=== PATIENT | female | born 1990 | race Hispanic/Latino ===

== ENCOUNTER 2018-05-05 07:36 | Outpatient (CLI) | payer OTHER ==
--- NOTE | 2018-05-05 10:17 | ULT ---
COMPLETE OB ULTRASOUND: HISTORY: Size and dates. COMPARISON: None. TECHNIQUE: Real-time, snyder-scale, color Doppler and spectral analysis of the gravid uterus is performed via tra nsabdominal approach. FINDINGS: Single viable intrauterine of average ultrasound age of 21 weeks 6 days. Estimated date of delivery 09/09/2018. Estimated weight 15 oz. BIOMETRY: BIPARIETAL DIAMETER: 5.34 cm (22 weeks 2 days). HEAD CIRCUMFERENCE: 19.6 cm (21 weeks 6 days). ABDOMINAL CIRCUMFERENCE: 17.31 cm (22 weeks 2 days), FEMUR LENGTH: 3.39 cm (20 weeks 5 days). Heart rate documented at 142 beats per minute. Amniotic fluid is adequate. No placenta previa. The placenta location is anterior and the presentat ion is cephalic. ANATOMY: Head, cerebellum, cisterna magna, lateral ventricles, four-chamber heart, stomach, kidneys, cord insertion, bladder, and cervical, thoracic, lumbar, and sacral spines, as well as lips/nose, up per extremities, lower extremities, and three-vessel cord are all normal. The cervix measures approximately 4 cm in length and is closed. IMPRESSION: Normal single viable intrauterine . POS: [facility]
== END 2018-05-05 07:37 | disposition home or self-care (01) ==
LOC: BICULT 07:36
PROVIDERS: ATTEND Family Medicine
DX: O09.892 Supervision of other high risk pregnancies, second trimester (principal); Z3A.21 21 weeks gestation of pregnancy
CPT/HCPCS: 76805

== ENCOUNTER 2018-07-26 18:20 | Day surgery (SDC) | payer OTHER ==
[2018-07-26 19:08] VITALS: BP 109/56; TEMP 98.7; BMI 32.5
[2018-07-26 20:14] LABS: Bilirubin Negative (Negative); Blood, Urine Negative (Negative); Clarity CLEAR (Clear); Glucose, Urine (Dipstick) 250 mg/dL (Negative); Leukocyte Negative (Negative); Nitrite Negative (Negative); Protein, Urine (Dipstick) Trace mg/dL (Neg-Trace); Specific Gravity, Urine 1.024 (1.002-1.036); pH, Urine 6.5 (5.0-9.0)
[2018-07-26 20:15] LABS: Bacteria/HPF None Seen HPF (None Seen); Hyaline Casts/LPF 0-3 HYALINE CAST LPF (0-3 Hyaline); Pathc Cast-AUWi Flag 0.27 (0-2.49); RBC/HPF 0-3 HPF (0-3); Squamous Epithelial 0-3 HPF (0-3)
--- NOTE | 2018-07-26 20:34 | ER ---
DATE OF SERVICE: 07/26/2018 PRIMARY HI LIFT OPERATOR: Antonio Killian MD CHIEF COMPLAINT: Back pain and lower pelvic pain. HISTORY OF PRESENT ILLNESS: The patient is a 27-year-old, G4, P3 female with an intrauterine at 32 weeks and 6 days, who is presenting with a 1-day history of lower back pain, that is worse with walking, activity, and movement, and lower pelvic pain that she also notices with the same. She reports that she has been a lot more active at home in the last few days, and believes this may be attributing to her pain. She also reports that she has some incomplete emptying , sensation of hesitancy with urination. She was seen in Dr. Killian's office earlier in the week, and did not believe she had any urinary problems at that time. The patient denies any fever, fall, headache, chest pain, shortness of breath, nausea, vomiting, diarrhea, constipation, hip problems, knee problems, or muscle weakness, and she denies any new rashes. Denies vaginal bleeding or leakage of fluid. She does report urinary hesitancy. PAST MEDICAL HISTORY: Negative. PAST SURGICAL HISTORY: She has had her tonsils removed. She has had a gallbladder removed, and she has had a heart repair at age 1. She has also had a prior . SOCIAL HISTORY: Denies drug, alcohol, or tobacco use. OBSTETRICAL HISTORY: Her last , the infant was diagnosed with osteogenesis imperfecta, diagnosed at one month. ALLERGIES: NO KNOWN DRUG ALLERGIES. MEDICATIONS: vitamins. OB LABS: Unavailable at the time of dictation. REVIEW OF SYSTEMS: Per HPI. PHYSICAL EXAMINATION: VITAL SIGNS: Blood pressure 109/56, heart rate of 82, respiratory rate of 20, saturating 99% on room air, temperature 98.7. GENERAL: She appears to be in no acute distress. She is alert, oriented, cooperative, pleasant to interact with. HEAD: Normocephalic and atraumatic. LUNGS: Clear to auscultation bilaterally. HEART: Has a regular rate and rhythm. ABDOMEN: Gravid and soft. She does have a little bit of tenderness to palpation suprapubically and has some SI joint tenderness, right greater than left. : She is intact per nursing visit. DIAGNOSTIC DATA: heart tracing performed, demonstrates an NST for back pain and pelvic pain. Baseline is noted to be in the 130s with moderate long-term variability, positive 15 x 15 accelerations, no decelerations. Tocometer does may show little bit of irritability, but no regular contraction pattern. The patient denies any contractions, only infrequent irregular. UA has been collected and is pending. ASSESSMENT AND PLAN: The patient is a 27-year-old multiparous female with an intrauterine at 32 weeks and 6 days, who is here for musculoskeletal pains x1 day, likely brought on by the increased activity. In the last couple of days , the patient has also been experiencing urinary hesitancy, for which urinalysis is being sent and pending those results. The patient will be discharged home with antibiotics. She will be given labor precautions and will be discharged to home. Fetus has a reactive nonstress test and category 1 tracing. Job ID: [id number] MTDD
== END 2018-07-26 20:41 | disposition home or self-care (01) ==
LOC: L&D/OP 18:20
PROVIDERS: ATTEND Family Medicine
DX: O99.89 Other specified diseases and conditions complicating pregnancy, childbirth and the puerperium (principal); R10.2 Pelvic and perineal pain; M54.9 Dorsalgia, unspecified; Z3A.32 32 weeks gestation of pregnancy; O34.219 Maternal care for unspecified type scar from previous cesarean delivery; Z90.89 Acquired absence of other organs; Z90.49 Acquired absence of other specified parts of digestive tract; Z98.890 Other specified postprocedural states
CPT/HCPCS: 81001; 99283

== ENCOUNTER 2018-08-24 20:58 | Day surgery (SDC) | payer OTHER ==
[2018-08-24 21:30] VITALS: BP 118/58; TEMP 98.3; BMI 32.8
--- NOTE | 2018-08-25 02:07 | PRG ---
DATE OF SERVICE: 08/24/2018 PRIMARY OBSTETRICS: Antonio Killian MD CHIEF COMPLAINT: Abdominal hardening. HISTORY OF PRESENT ILLNESS: The patient is a 27-year-old, G3, P2 female with an intrauterine at 37 weeks, who was seen by Dr. Killian earlier today in the clinic. The patient reported that she had to leave sooner than planned because her child was not behaving and was unable to get a cervical exam. The patient reports that she has had experienced her abdomen got harder a couple of times and decided to come to the hospital to see if ever cervix is dilating. The patient denies any vaginal bleeding or change in discharge. She denies urinary urgency. She denies fever, fall, headache, chest pain, shortness of breath, nausea, vomiting, diarrhea, constipation, hip problems, knee problems, muscle weakness, any new rashes, bleeding, leaking fluid, or urinary urgency. PAST MEDICAL HISTORY: Negative. PAST SURGICAL HISTORY: Two prior C-sections. ALLERGIES: NO KNOWN DRUG ALLERGIES. MEDICATIONS: vitamins. SOCIAL HISTORY: Denies drug, alcohol, or tobacco use. OBSTETRICS LABORATORY DATA: Blood type is A positive. Antibody screen is negative. RPR is nonreactive in the first and third trimester. HIV is nonreactive in the first and third trimester. Hepatitis B surface antigen is negative. She is rubella immune. She has GBS is undocumented. REVIEW OF SYSTEMS: Per HPI. PHYSICAL EXAMINATION: VITAL SIGNS: Blood pressure 118/58, heart rate of 84, respiratory rate 18, saturating 99% on room air, and temperature 98.3. GENERAL: She appears to be in no acute distress. She is alert, oriented, cooperative, and pleasant to interact with. HEAD: Normocephalic, atraumatic. LUNGS: Clear to auscultation bilaterally. HEART: Regular rate and rhythm. ABDOMEN: Gravid and soft, nontender. EXTREMITIES: Nontender, nonedematous. CERVICAL: Per nursing staff, she is closed, 50%, -2 station. heart tracing demonstrates fetus with a baseline in the 150s, moderate long-term variability, positive 15 x 15 accelerations. Tocometer shows possibly some irritability, but no significant contractions. ASSESSMENT AND PLAN: The patient is a 27-year-old, G3, P2 female with an intrauterine at 37 weeks with false labor. The patient has been given term labor precautions. She has an appointment in [address] Killian. She does have a tentative date for in 2 weeks. Job ID: [id number]
== END 2018-08-24 22:44 | disposition home or self-care (01) ==
LOC: L&D/OP 20:58
PROVIDERS: ATTEND Family Medicine
DX: O47.1 False labor at or after 37 completed weeks of gestation (principal); Z3A.37 37 weeks gestation of pregnancy; Z79.899 Other long term (current) drug therapy; Z98.891 History of uterine scar from previous surgery
CPT/HCPCS: 99283

== ENCOUNTER 2018-09-07 04:47 | Inpatient (IN) | payer MEDICAID, OTHER, SELFPAY ==
[2018-09-07 05:13] VITALS: BMI 32.8
[2018-09-07] MEDS ORDERED: Promethazine HCl 25 MG/ML VIAL IM PRN ×3 (05:33→09:50)
[2018-09-07] MEDS ORDERED: Lactated Ringer's 1,000 ML IV SCH ×2 (05:33→09:50)
[2018-09-07] MEDS ORDERED: Ondansetron PF 4 MG/2 ML Vial IVP PRN ×3 (05:33→09:50)
[2018-09-07] MEDS ORDERED: CEFAZOLIN 2 GM in Premix Bag 1 BAG IVPB SCH (05:45)
[2018-09-07] MEDS ORDERED: Bicitra 30 ML UDCUP PO SCH (05:45)
[2018-09-07 05:51] LABS: Hemoglobin 9.9 g/dL (12.0-16.0); Mean Corpuscular HGB CONC 32.2 g/dL (32.0-36.0); Mean Corpuscular Hemoglobin 23.2 pg (27.0-31.0); Mean Corpuscular Volume 71.9 fL (78.0-98.0); Mean Platelet Volume 8.7 fL (7.4-10.4); Platelet Count 370 thou/uL (130-400); RBC Distribution Width 15.8 % (11.5-14.5); Red Blood Cell (RBC) Count 4.25 mill/uL (4.20-5.40); White Blood Cell (WBC) Count 15.1 thou/uL (4.8-10.8)
[2018-09-07] MEDS ORDERED: Azithromycin 500 MG in Sodium Chloride 0.9% 250 ML 250 ML IVPB SCH (06:00)
[2018-09-07 06:30] LABS: HBSAg Index 0.34 S/CO (0-0.99); Hep B Surf Ag Non-Reactive S/CO (NonReactive); Syphilis Antibody Nonreactive (Nonreactive); Syphilis Antibody Index 0.03 S/CO (<1.00 Non-Reactive)
[2018-09-07] MEDS ORDERED: Metoclopramide HCl 10 MG/2 ML VIAL ONE (08:22)
[2018-09-07] MEDS ORDERED: MORPHINE 5 MG/10 ML PF VIAL ONE (08:22)
[2018-09-07] MEDS ORDERED: Oxytocin 10 UNITS/ML VIAL ONE (08:22)
[2018-09-07] MEDS ORDERED: ePHEDrine/0.9% NaCl/PF SYRINGE 50 mg/10 ml ONE (08:22)
[2018-09-07] MEDS ORDERED: Ondansetron PF 4 MG/2 ML Vial ONE ×2 (08:22→09:51)
[2018-09-07] MEDS ORDERED: Naloxone HCl 0.4 mg/ml Vial IVP PRN ×2 (09:09)
[2018-09-07] MEDS ORDERED: diphenhydrAMINE 50 MG/ML VIAL IVP PRN (09:09)
[2018-09-07] MEDS ORDERED: Naloxone HCl 0.4 mg/ml Vial IV PRN (09:09)
[2018-09-07] MEDS ORDERED: Ketorolac Tromethamine 30 MG/ML VIAL IVP PRN (09:09)
[2018-09-07] MEDS ORDERED: Promethazine HCl 25 MG SUPP PR PRN (09:09)
[2018-09-07] MEDS ORDERED: Eucerin (Mineral Oil/Petrolatum,White) 30 gm Jar TOP PRN (09:09)
[2018-09-07] MEDS ORDERED: Communication Order-Pharmacy FS SCH (09:15)
--- NOTE | 2018-09-07 09:35 | PDOC.OPDEL ---
OB Operative/Delivery Note - Additional Findings/Plan Compilations/Other Findings: Procedure Note Date of Procedure: 09/07/18 Resident Surgeon: Dr. Glenroy Hogan Attending Surgeon: Dr. Antonio Killian Procedure: Repeat vertical caesarean section Preoperative Diagnosis: 1)Term intrauterine 2)Hx of vertical caesarean section in [place] Postoperative Diagnosis: 1)same as above Anesthesia: spinal Indications: The patient is a 27 year old G3,P3 female at 39.0 weeks gestation who presents for repeat vertical . Procedure in Detail: After risks, benefits, and alternatives were explained to the patient, she gave informed consent. Pre-operative antibiotics included Cefazolin 2 gram IV. The patient was taken to the operating room and epidural anesthesia was found to be sufficient. She was placed in the supine position with a left tilt and prepped and draped in usual sterile fashion. A vertical incision was made with a scalpel and carried down to the level of the fascia which was sharply nicked. The fascial cut was extended bilaterally with Walls scissors and then with scapel as there were many adhesions. The recti were divided digitally and retracted manually. The peritoneum was entered bluntly and retracted manually. Bladder blade was placed. A low transverse score was made with the scalpel and the uterus was entered in the midline with the scalpel. Clear fluid was seen. The hysterotomy was extended manually. The infant was noted to be vertex and was easily delivered by fundal pressure. Mouth and nares were bulb suctioned. Cord clamped and cut and grossly normal male was handed to waiting nurse. Cord blood was obtained. Placenta was manually extracted, found to be intact with 3 vessel cord and discarded. The uterus was externalized and the endometrium was curetted with a dry lap. The bladder blade was replaced and the uterus was closed with a running locking 0- Vicryl followed figure of eight #0 Vicryl imbricating suture x1. Following this hemostasis was noted. The abdomen was irrigated with saline and suctioned free of clots. The uterus was internalized and the hysterotomy was again noted to be hemostatic. The peritoneum was closed using 3-0 vicryl in a running non- locking fashion. The fascia was closed with a running non-locking 0-PDS suture in the usual fashoin. The subcutaneous tissue was irrigated and there were no bleeders. The subcutaneous layer a running non-lock layer of 3-0 chromic. The skin was approximated with natalie and a pressure dressing was placed. All counts were correct. The patient tolerated the procedure well and was taken to the recovery room in stable condition. QBL: 762 ml Complications: None Specimens: Cord blood sent to lab for blood type Findings: Grossly normal male infant. Grossly normal placenta with 3 vessel cord discarded. Drains: Larson to gravity draining clear urine
[2018-09-07] MEDS ORDERED: diphenhydrAMINE 25 MG CAP PO PRN (09:50)
[2018-09-07] MEDS ORDERED: Lanolin Ointment 7 GM TUBE TOP PRN (09:50)
[2018-09-07] MEDS ORDERED: Meperidine HCl/PF 25 MG/ML VIAL IM PRN (09:50)
[2018-09-07] MEDS ORDERED: Bisacodyl 10 MG SUPP PR PRN (09:50)
[2018-09-07] MEDS ORDERED: HYDROcodone/Acetaminophen 5/325 mg Tablet PO PRN ×2 (09:50)
[2018-09-07] MEDS ORDERED: NS / Oxytocin 40 units/1000ml 1,000 ML IV SCH (09:50)
[2018-09-07] MEDS ORDERED: ePHEDrine 50 MG/ML VIAL ONE (09:51)
[2018-09-07] MEDS ORDERED: NS / Oxytocin 40 units/1000ml 1,000 ML ONE (09:53)
[2018-09-07] MEDS: Ferrous Sulfate 325 MG TAB PO SCH ×2 (10:05→22:00)
[2018-09-07] MEDS: Docusate Calcium (SURFAK) 240 MG CAP PO SCH ×2 (10:05→22:00)
[2018-09-07] MEDS: Prenatal Vitamin 1 TAB PO SCH (10:35)
[2018-09-07] MEDS: Ibuprofen 800 MG TAB PO SCH ×2 (12:44→22:00)
[2018-09-07] MEDS ORDERED: Simethicone Chewable 80 MG TAB PO PRN (13:00)
[2018-09-08] MEDS: Ibuprofen 800 MG TAB PO SCH ×4 (07:23→21:49)
[2018-09-08 07:41] LABS: Hemoglobin 8.3 g/dL (12.0-16.0); Mean Corpuscular HGB CONC 32.6 g/dL (32.0-36.0); Mean Corpuscular Hemoglobin 23.7 pg (27.0-31.0); Mean Corpuscular Volume 72.5 fL (78.0-98.0); Mean Platelet Volume 8.6 fL (7.4-10.4); Platelet Count 324 thou/uL (130-400); RBC Distribution Width 15.9 % (11.5-14.5); Red Blood Cell (RBC) Count 3.51 mill/uL (4.20-5.40); White Blood Cell (WBC) Count 16.6 thou/uL (4.8-10.8)
[2018-09-08] MEDS: Ferrous Sulfate 325 MG TAB PO SCH ×2 (08:03→21:49)
[2018-09-08] MEDS: Docusate Calcium (SURFAK) 240 MG CAP PO SCH ×2 (08:03→21:49)
[2018-09-08] MEDS: Prenatal Vitamin 1 TAB PO SCH (08:03)
[2018-09-09] MEDS: Ibuprofen 800 MG TAB PO SCH ×2 (05:47→13:39)
[2018-09-09 08:23] VITALS: BP 100/57; TEMP 98.8
[2018-09-09] MEDS: Prenatal Vitamin 1 TAB PO SCH (08:46)
[2018-09-09] MEDS: Docusate Calcium (SURFAK) 240 MG CAP PO SCH (08:46)
[2018-09-09] MEDS: Ferrous Sulfate 325 MG TAB PO SCH (08:46)
== END 2018-09-09 14:00 | disposition home or self-care (01) | DRG 788 ==
LOC: L&D 04:47 → 3SW 11:59
PROVIDERS: ADMIT Family Medicine; ATTEND Family Medicine
PROC: 10D00Z1 Extraction of Products of Conception, Low, Open Approach (ICD-10-PCS; principal; 2018-09-07)
DX: O34.211 Maternal care for low transverse scar from previous cesarean delivery (principal); Z3A.39 39 weeks gestation of pregnancy; Z37.0 Single live birth
CPT/HCPCS: 36415; 51702; 85027; 86780; 86850; 86900; 86901; 87340; J0456; J0690; J1885; J2270; J2405; J2590; J2765; J3490; J7050